=== PATIENT | female | born 1950 | race Caucasian/White ===

== ENCOUNTER 2019-01-05 22:53 | Observation (INO) | payer MEDICARE, OTHER ==
[2019-01-05] MEDS ORDERED: Sodium Chloride 0.9% 1,000 ML IV SCH (23:45)
[2019-01-05] MEDS ORDERED: Nitroglycerin 2% Oint 1 GM UD Packet TOP ONE (23:47)
--- NOTE | 2019-01-05 23:48 | EDM.PDOC ---
ED HPI GENERAL MEDICAL PROBLEM - General Chief Complaint: General Stated Complaint: SHARP PAINS IN FACE AND EYE Time Seen by Provider: 01/05/19 23:15 Source of Information: Reports: Patient, Family History Limitations: Reports: No Limitations - History of Present Illness INITIAL COMMENTS - FREE TEXT/NARRATIVE: 68 y.o.w.f came to ED because of left face and left arm numbness. She has intermittent pain behind her left eye. Here MRI brain was neg for CVA and the result a 48 hours Holter monitor is pending. She has C/P per se. No N/V/D no photophobia. She can not take Aspirin because abnormal labs of her kidney. BP 170/87 RR 16 Pulse ox 98% Temp 36.6 Pulse 48 Onset Date: 01/04/19 Onset Time: 07:00 Duration: Hour(s):, Day(s):, Getting Worse, Intermittent Location: Reports: Face, Upper Extremity, Right (numbness), Lower Extremity, Left Quality: Reports: Other (numbness) Severity: Mild Improves with: Reports: None Worsens with: Reports: None Context: Reports: Other Headache Pain Score (Numeric/FACES): 5 - Related Data Allergies Allergy/AdvReac Type Severity Reaction Status Date / Time ketorolac [From Toradol] Allergy Rash Verified 01/05/19 23:01 Sulfa (Sulfonamide Allergy Hives Verified 01/05/19 23:01 Antibiotics) Home Meds: Home Meds Metoprolol Succinate [Toprol XL] 50 mg PO DAILY 05/14/14 [History] Albuterol [Proair HFA] 2 puff INH DAILY PRN 01/09/16 [History] Gabapentin [Neurontin] 300 mg PO DAILY 01/09/16 [History] Calcium Carbonate [Super Calcium] 600 mg PO DAILY 10/01/16 [History] Cetirizine [ZyrTEC] 20 mg PO DAILY 10/01/16 [History] Cholecalciferol (Vitamin D3) [Vitamin D3] 1,000 unit PO DAILY 10/01/16 [History] Fluticasone Propionate [Flonase] 2 spray BRIANNA DAILY 10/01/16 [History] Omeprazole Magnesium 20 mg PO BID PRN 10/01/16 [History] Triamcinolone Acetonide [Kenalog 0.1% Crm] 1 applic TOP BID PRN 10/01/16 [ History] Aspirin 325 mg PO DAILY PRN 01/05/19 [History] Rosuvastatin [Crestor] 10 mg PO DAILY 01/05/19 [History] Past Medical History HEENT History: Reports: Impaired Vision Other HEENT History: allergic rhinitis Cardiovascular History: Reports: Arrhythmia, Hypertension Other Cardiovascular History: hyperlipidemia, varicose veins both lower extremities Respiratory History: Reports: Asthma Gastrointestinal History: Reports: Cholelithiasis, Diverticulosis, GERD 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: atrophic vaginitis Musculoskeletal History: Reports: Back Pain, Chronic, Fracture, Fibromyalgia, Osteoarthritis, Osteoporosis Neurological History: Other Neuro History: benign essential tremor Psychiatric History: Reports: Anxiety Endocrine/Metabolic History: Reports: Osteoporosis Hematologic History: Reports: None Immunologic History: Reports: None Oncologic (Cancer) History: Reports: None Dermatologic History: Reports: Other (See Below) Other Dermatologic History: BROWN AREA LEFT ANKLE FROM VARICOSE VIENS/ CIRCULATION - Past Surgical History GI Surgical History: Reports: Cholecystectomy, Colonoscopy, EGD, Polypectomy Musculoskeletal Surgical History: Reports: Other (See Below) Other Musculoskeletal Surgeries/Procedures:: Meniscus repair Social & Family History - Family History Family Medical History: Noncontributory - Tobacco Use Smoking Status *Q: Never Smoker - Caffeine Use Caffeine Use: Reports: Coffee, Soda - Recreational Drug Use Recreational Drug Use: No ED ROS GENERAL - Review of Systems Review Of Systems: See Below Constitutional: Reports: No Symptoms HEENT: Reports: No Symptoms Respiratory: Reports: No Symptoms Cardiovascular: Reports: Palpitations, Other (numbness left face and left arm) Endocrine: Reports: No Symptoms GI/Abdominal: Reports: No Symptoms : Reports: No Symptoms Musculoskeletal: Reports: No Symptoms Skin: Reports: No Symptoms Neurological: Reports: Headache (left temp area) Psychiatric: Reports: No Symptoms Hematologic/Lymphatic: Reports: No Symptoms Immunologic: Reports: No Symptoms ED EXAM, GENERAL - Physical Exam Exam: See Below Exam Limited By: No Limitations General Appearance: Alert, WD/WN, Mild Distress Eye Exam: Bilateral Eye: Normal Inspection Ears: Normal External Exam Ear Exam: Bilateral Ear: Auricle Normal Nose: Normal Inspection, Normal Mucosa, No Blood Throat/Mouth: Normal Inspection, Normal Lips, Normal Voice, No Airway Compromise Head: Atraumatic, Normocephalic Neck: Normal Inspection, Supple, Non-Tender, Full Range of Motion Respiratory/Chest: No Respiratory Distress, Lungs Clear, Normal Breath Sounds, Chest Non-Tender Cardiovascular: Normal Peripheral Pulses, Regular Rate, Rhythm, No Edema, No Gallop, No Murmur, No Rub Peripheral Pulses: 1+: Brachial (R) GI/Abdominal: Normal Bowel Sounds, Soft, Non-Tender, No Organomegaly, No Abnormal Bruit, No Mass, Pelvis Stable (Female) Exam: Deferred Rectal (Female) Exam: Deferred Back Exam: Normal Inspection Extremities: Normal Inspection, Normal Range of Motion, Non-Tender Neurological: Alert, Oriented, CN II-XII Intact, Normal Cognition, Normal Gait, Other (nubness ) Psychiatric: Normal Affect, Normal Mood Skin Exam: Warm, Dry, Intact Lymphatic: No Adenopathy EKG INTERPRETATION EKG Date: 01/05/19 Time: 23:55 Rhythm: NSR Rate (Beats/Min): 48 [place]: Normal P-Wave: Present QRS: Normal ST-T: Normal QT: Normal Comparison: NA - No Prior EKG Course - Vital Signs Text/Narrative:: 68 y.o.w.f came to te ED because of left face and left arm numbness. She has intermittent pain behind her left eye. Here MRI brain was neg for CVA and the result a 48 hours Holter monitor is pending. She has C/P per se. No N/V/D no photophobia. She can not take Aspirin because abnormal labs of her kidney. BP 170/87 RR 16 Pulse ox 98% Temp 36.6 Pulse 48 PE: WNWD W F with left face and left arm numbness, worse with neck movement, neg MRI of brain. Neck vessels were not tested. Pt was told not to take ASA Imaging: MRI brain was neg for CVA a few days ago Labs: CBC neg, D Dimer neg, Troponin 0.017, GFR 49 Cr 1.1 BUN 24 48 hours Holter monitor results are pending Impression: Unstable angina with left arm and face numbness vs TIA, Migraine H/ A DDx Temporal arteritis Dizziness with neck movement. DDx poss carotis stenosis Tx: Nitropaste, NS, Lovenox Reexam: Numbness subsided, ASA was not given because her renal insufficiency, H/ A behind left eye improved Plan: admit to [facility], Doppler US of carotids in AM, needs to be scheduled 01/06/19 2nd EKG: No change from prev EKG, HR was 52 however. Last Recorded V/S: Last Vital Signs Temp 36.3 C 01/06/19 01:38 Pulse 63 01/06/19 01:38 Resp 16 01/06/19 01:38 BP 116/73 01/06/19 01:38 Pulse Ox 98 01/06/19 01:38 - Orders/Labs/Meds Orders: Active Orders 24 hr Category Date Time Status Sodium Chloride 0.9% [Normal Saline] 1,000 ml Med 01/05/19 23:45 Active IV ASDIRECTED Sodium Chloride 0.9% [Saline Flush] Med 01/05/19 23:55 Active 10 ml FLUSH ASDIRECTED PRN Medication Orders Enoxaparin Sodium (Lovenox) 80 mg SUBCUT Q24H [facility] Last Admin: 01/06/19 01:29 Dose: 80 mg Sodium Chloride (Normal Saline) 1,000 mls @ 125 mls/hr IV ASDIRECTED [facility] Last Admin: 01/06/19 00:00 Dose: 125 mls/hr Sodium Chloride (Saline Flush) 10 ml FLUSH ASDIRECTED PRN PRN Reason: IV Use Last Admin: 01/05/19 23:58 Dose: 10 ml Labs: Laboratory Tests 01/05/19 01/05/19 01/05/19 Range/Units 23:58 23:58 23:58 WBC 7.0 (4.5-12.0) X10-3/uL RBC 4.75 (3.23-5.20) x10(6)uL Hgb 14.6 (11.5-15.5) g/dL Hct 42.7 (30.0-51.3) % MCV 90.0 (80-96) fL MCH 30.7 (27.7-33.6) pg MCHC 34.1 (32.2-35.4) g/dL RDW 12.4 (11.5-15.5) % Plt Count 177 (125-369) X10(3)uL MPV 10.1 (7.4-10.4) fL Neut % (Auto) 68.5 (46-82) % Lymph % (Auto) 21.8 (13-37) % [place] % (Auto) 7.9 (4-12) % Eos % (Auto) 2 (1.0-5.0) % Baso % (Auto) 0 (0-2) % Neut # (Auto) 4.8 (1.6-8.3) # Lymph # (Auto) 1.5 (0.6-5.0) # [place] # (Auto) 0.6 (0.0-1.3) # Eos # (Auto) 0.1 (0.0-0.8) # Baso # (Auto) 0.0 (0.0-0.2) # D-Dimer, Quantitative 0.44 (0.0-0.59) mg/LFEU Sodium 142 (135-145) mmol/L Potassium 4.0 (3.5-5.3) mmol/L Chloride 107 (100-110) mmol/L Carbon Dioxide 23 (21-32) mmol/L BUN 21 H (7-18) mg/dL Creatinine 1.1 H (0.55-1.02) mg/dL Est Cr Clr Drug Dosing 41.09 mL/min Estimated GFR (MDRD) 49 L (>60) BUN/Creatinine Ratio 19.1 (9-20) Glucose 113 (80-116) mg/dL Calcium 9.6 (8.6-10.2) mg/dL Troponin I (<0.017-0.056) ng/mL 01/05/19 Range/Units 23:58 WBC (4.5-12.0) X10-3/uL RBC (3.23-5.20) x10(6)uL Hgb (11.5-15.5) g/dL Hct (30.0-51.3) % MCV (80-96) fL MCH (27.7-33.6) pg MCHC (32.2-35.4) g/dL RDW (11.5-15.5) % Plt Count (125-369) X10(3)uL MPV (7.4-10.4) fL Neut % (Auto) (46-82) % Lymph % (Auto) (13-37) % [place] % (Auto) (4-12) % Eos % (Auto) (1.0-5.0) % Baso % (Auto) (0-2) % Neut # (Auto) (1.6-8.3) # Lymph # (Auto) (0.6-5.0) # [place] # (Auto) (0.0-1.3) # Eos # (Auto) (0.0-0.8) # Baso # (Auto) (0.0-0.2) # D-Dimer, Quantitative (0.0-0.59) mg/LFEU Sodium (135-145) mmol/L Potassium (3.5-5.3) mmol/L Chloride (100-110) mmol/L Carbon Dioxide (21-32) mmol/L BUN (7-18) mg/dL Creatinine (0.55-1.02) mg/dL Est Cr Clr Drug Dosing mL/min Estimated GFR (MDRD) (>60) BUN/Creatinine Ratio (9-20) Glucose (80-116) mg/dL Calcium (8.6-10.2) mg/dL Troponin I < 0.017 L (<0.017-0.056) ng/mL Meds: Medications Generic Name Dose Route Start Last Admin Trade Name Freq PRN Reason Stop Dose Admin Enoxaparin Sodium 80 mg 01/06/19 01:15 01/06/19 01:29 Lovenox SUBCUT 80 mg Q24H [facility] Administration Sodium Chloride 1,000 mls @ 125 mls/hr 01/05/19 23:45 01/06/19 00:00 Normal Saline IV 125 mls/hr ASDIRECTED [facility] Administration Sodium Chloride 10 ml 01/05/19 23:55 01/05/19 23:58 Saline Flush FLUSH 10 ml ASDIRECTED PRN Administration IV Use Discontinued Medications Generic Name Dose Route Start Last Admin Trade Name Freq PRN Reason Stop Dose Admin Acetaminophen 650 mg 01/06/19 02:24 01/06/19 02:34 Tylenol PO 01/06/19 02:25 650 mg ONETIME ONE Administration Nitroglycerin 1 gm 01/05/19 23:47 01/05/19 23:53 Nitro-Bid 2% TOP 01/05/19 23:48 1 gm ONETIME ONE Administration Departure - Departure Time of Disposition: 01:42 Disposition: Refer to Observation Condition: Fair Clinical Impression: Unstable angina - Discharge Information - My Orders Last 24 Hours: My Active Orders 01/05/19 23:45 Sodium Chloride 0.9% [Normal Saline] 1,000 ml IV ASDIRECTED 01/05/19 23:55 Sodium Chloride 0.9% [Saline Flush] 10 ml FLUSH ASDIRECTED PRN - Assessment/Plan Last 24 Hours: My Active Orders 01/05/19 23:45 Sodium Chloride 0.9% [Normal Saline] 1,000 ml IV ASDIRECTED 01/05/19 23:55 Sodium Chloride 0.9% [Saline Flush] 10 ml FLUSH ASDIRECTED PRN
[2019-01-05] MEDS: Sodium Chloride 0.9% 10 ML Syringe FLUSH PRN (23:58)
[2019-01-06] MEDS ORDERED: Enoxaparin 40 MG/0.4 ML Syringe SUBCUT SCH (01:15)
[2019-01-06] MEDS ORDERED: Acetaminophen Soln 650 MG/20.3 ML UD Cup PO ONE (02:24)
[2019-01-06] MEDS: Sodium Chloride 0.9% 10 ML Syringe FLUSH PRN (08:11)
--- NOTE | 2019-01-06 08:34 | PCM.HP ---
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 She describes episodes of dull pain face ,usually left sided,that also causes a dull headache ,primarily occur at night. These have been on for at least 3 weeks. Sometimes demonstrated visual disturbance, tearing and extreme fatigue afterwards. Yesterday it became unrelenting and she presented to the ER. In the clinic she said an MRI that apparently showed could sit medications and she is current on Lipitor. She also takes metoprolol for an "irregular heartbeat". She denies any chest pain shortness of breath but has had some nausea protocol with these headaches. Denies recent stress; fever chills and doesn't smoke or drink. Headache Pain Score (Numeric/FACES): 5 - Related Data Allergies/Adverse Reactions: Allergies Allergy/AdvReac Type Severity Reaction Status Date / Time ketorolac [From Toradol] Allergy Rash Verified 01/05/19 23:01 Sulfa (Sulfonamide Allergy Hives Verified 01/05/19 23:01 Antibiotics) Home Medications: Home Meds Metoprolol Succinate [Toprol XL] 50 mg PO DAILY 05/14/14 [History] Albuterol [Proair HFA] 2 puff INH DAILY PRN 01/09/16 [History] Gabapentin [Neurontin] 300 mg PO DAILY 01/09/16 [History] Calcium Carbonate [Super Calcium] 600 mg PO DAILY 10/01/16 [History] Cetirizine [ZyrTEC] 20 mg PO DAILY 10/01/16 [History] Cholecalciferol (Vitamin D3) [Vitamin D3] 1,000 unit PO DAILY 10/01/16 [History] Fluticasone Propionate [Flonase] 2 spray BRIANNA DAILY 10/01/16 [History] Omeprazole Magnesium 20 mg PO BID PRN 10/01/16 [History] Triamcinolone Acetonide [Kenalog 0.1% Crm] 1 applic TOP BID PRN 10/01/16 [ History] Aspirin 325 mg PO DAILY PRN 01/05/19 [History] Rosuvastatin [Crestor] 10 mg PO DAILY 01/05/19 [History] Past Medical History HEENT History: Reports: Impaired Vision Other HEENT History: allergic rhinitis Cardiovascular History: Reports: Arrhythmia, Hypertension Other Cardiovascular History: hyperlipidemia, varicose veins both lower extremities Respiratory History: Reports: Asthma Gastrointestinal History: Reports: Cholelithiasis, Diverticulosis, GERD 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 Other OB/BYN History: atrophic vaginitis Musculoskeletal History: Reports: Back Pain, Chronic, Fracture, Fibromyalgia, Osteoarthritis, Osteoporosis Neurological History: Other Neuro History: benign essential tremor Psychiatric History: Reports: Anxiety Endocrine/Metabolic History: Reports: Osteoporosis Hematologic History: Reports: None Immunologic History: Reports: None Oncologic (Cancer) History: Reports: None Dermatologic History: Reports: Other (See Below) Other Dermatologic History: BROWN AREA LEFT ANKLE FROM VARICOSE VIENS/ CIRCULATION - Infectious Disease History Infectious Disease History: Reports: Chicken Pox, Measles - Past Surgical History GI Surgical History: Reports: Cholecystectomy, Colonoscopy, EGD, Polypectomy Musculoskeletal Surgical History: Reports: Other (See Below) Other Musculoskeletal Surgeries/Procedures:: Meniscus repair Social & Family History - Family History Family Medical History: Noncontributory - Tobacco Use Smoking Status *Q: Never Smoker Second Hand Smoke Exposure: No - Caffeine Use Caffeine Use: Reports: Coffee, Soda - Recreational Drug Use Recreational Drug Use: No H&P Review of Systems - Review of Systems: Review Of Systems: ROS reveals no pertinent complaints other than HPI. Exam - Exam Exam: See Below - Vital Signs Vital Signs: Last Vital Signs Temp 97.3 F 01/06/19 01:38 Pulse 63 01/06/19 01:38 Resp 16 01/06/19 01:38 BP 116/73 01/06/19 01:38 Pulse Ox 98 01/06/19 01:38 Weight: 77.836 kg - Exam General: Alert, Oriented, 4 HEENT: PERRLA, Hearing Intact, Mucosa Moist & [place], Nares Patent, Normal Nasal Septum, Posterior Pharynx Clear, Conjunctiva Clear, EOMI, EACs Clear, TMs Clear Neck: Supple, Trachea Midline, 2 Lungs: Clear to Auscultation, Normal Respiratory Effort Cardiovascular: Regular Rate, Irregular Rhythm, Systolic Murmur GI/Abdominal Exam: Normal Bowel Sounds, Soft, Non-Tender, No Organomegaly, No Distention, No Abnormal Bruit, No Mass, Pelvis Stable (Female) Exam: Normal Speculum Exam, Deferred Rectal (Female) Exam: Deferred Back Exam: Normal Inspection, Full Range of Motion, NT Extremities: Normal Inspection, Normal Range of Motion, Non-Tender, No Pedal Edema, Normal Capillary Refill Skin: Warm, Dry, Intact Neurological: Cranial Nerves Intact, Reflexes Equal Bilateral Neuro Extensive - Mental Status: Alert, Oriented x3, Normal Mood/Affect, Normal Cognition Neuro Extensive - Motor, Sensory, Reflexes: CN II-XII Intact, Normal Gait, Normal Reflexes Psychiatric: Alert, Normal Affect, Normal Mood - Patient Data Lab Results Last 24 hrs: Laboratory Results - last 24 hr 01/05/19 01/05/19 01/05/19 Range/Units 23:58 23:58 23:58 WBC 7.0 (4.5-12.0) X10-3/uL RBC 4.75 (3.23-5.20) x10(6)uL Hgb 14.6 (11.5-15.5) g/dL Hct 42.7 (30.0-51.3) % MCV 90.0 (80-96) fL MCH 30.7 (27.7-33.6) pg MCHC 34.1 (32.2-35.4) g/dL RDW 12.4 (11.5-15.5) % Plt Count 177 (125-369) X10(3)uL MPV 10.1 (7.4-10.4) fL Neut % (Auto) 68.5 (46-82) % Lymph % (Auto) 21.8 (13-37) % Ray % (Auto) 7.9 (4-12) % Eos % (Auto) 2 (1.0-5.0) % Baso % (Auto) 0 (0-2) % Neut # (Auto) 4.8 (1.6-8.3) # Lymph # (Auto) 1.5 (0.6-5.0) # Ray # (Auto) 0.6 (0.0-1.3) # Eos # (Auto) 0.1 (0.0-0.8) # Baso # (Auto) 0.0 (0.0-0.2) # ESR (0-20) mm/hr D-Dimer, Quantitative 0.44 (0.0-0.59) mg/LFEU Sodium 142 (135-145) mmol/L Potassium 4.0 (3.5-5.3) mmol/L Chloride 107 (100-110) mmol/L Carbon Dioxide 23 (21-32) mmol/L BUN 21 H (7-18) mg/dL Creatinine 1.1 H (0.55-1.02) mg/dL Est Cr Clr Drug Dosing 41.09 mL/min Estimated GFR (MDRD) 49 L (>60) BUN/Creatinine Ratio 19.1 (9-20) Glucose 113 (80-116) mg/dL Calcium 9.6 (8.6-10.2) mg/dL Troponin I (<0.017-0.056) ng/mL 01/05/19 01/06/19 01/06/19 Range/Units 23:58 00:00 04:15 WBC (4.5-12.0) X10-3/uL RBC (3.23-5.20) x10(6)uL Hgb (11.5-15.5) g/dL Hct (30.0-51.3) % MCV (80-96) fL MCH (27.7-33.6) pg MCHC (32.2-35.4) g/dL RDW (11.5-15.5) % Plt Count (125-369) X10(3)uL MPV (7.4-10.4) fL Neut % (Auto) (46-82) % Lymph % (Auto) (13-37) % [place] % (Auto) (4-12) % Eos % (Auto) (1.0-5.0) % Baso % (Auto) (0-2) % Neut # (Auto) (1.6-8.3) # Lymph # (Auto) (0.6-5.0) # Ray # (Auto) (0.0-1.3) # Eos # (Auto) (0.0-0.8) # Baso # (Auto) (0.0-0.2) # ESR 2 (0-20) mm/hr D-Dimer, Quantitative (0.0-0.59) mg/LFEU Sodium (135-145) mmol/L Potassium (3.5-5.3) mmol/L Chloride (100-110) mmol/L Carbon Dioxide (21-32) mmol/L BUN (7-18) mg/dL Creatinine (0.55-1.02) mg/dL Est Cr Clr Drug Dosing mL/min Estimated GFR (MDRD) (>60) BUN/Creatinine Ratio (9-20) Glucose (80-116) mg/dL Calcium (8.6-10.2) mg/dL Troponin I < 0.017 L < 0.017 L (<0.017-0.056) ng/mL Result Diagrams: 01/05/19 23:58 01/05/19 23:58 - Problem List (1) Facial pain SNOMED Code(s): 32646344 ICD Code: R51 - HEADACHE Status: Acute Current Visit: Yes (2) Afib SNOMED Code(s): 23800423 ICD Code: I48.91 - UNSPECIFIED ATRIAL FIBRILLATION Status: Acute Current Visit: Yes (3) Numbness of face SNOMED Code(s): 630561693 ICD Code: R20.0 - ANESTHESIA OF SKIN Status: Acute Current Visit: Yes Problem List Initiated/Reviewed/Updated: Yes Orders Last 24hrs: Active Orders 24 hr Category Date Time Status Patient Status [ADT] Routine ADT 01/06/19 01:13 Active Cardiac Monitoring [RC] CONTINUOUS Care 01/06/19 01:16 Active EKG Documentation Completion [RC] ASDIRECTED Care 01/06/19 02:14 Active Oxygen Therapy [RC] PRN Care 01/06/19 01:13 Active Pulse Oximetry [RC] CONTINUOUS Care 01/06/19 01:16 Active Up With Assistance [RC] ASDIRECTED Care 01/06/19 01:13 Active Vital Signs [RC] Q4H Care 01/06/19 01:13 Active Heart Healthy Diet [DIET] Diet 01/06/19 Breakfast Ordered CBC WITH AUTO DIFF [HEME] Routine Lab 01/06/19 08:26 Ordered GLYCOSYLATED HEMOGLOBIN,HGBA1C [CHEM] Routine Lab 01/06/19 08:26 Ordered LIPID PANEL [CHEM] Routine Lab 01/06/19 08:26 Ordered TSH ULTRASENSITIVE [CHEM] Routine Lab 01/06/19 08:26 Ordered Enoxaparin [Lovenox] Med 01/06/19 01:15 Active 80 mg SUBCUT Q24H Sodium Chloride 0.9% [Saline Flush] Med 01/05/19 23:55 Active 10 ml FLUSH ASDIRECTED PRN Resuscitation Status Routine Resus Stat 01/06/19 01:13 Ordered EKG 12 Lead [EK] Routine Ther 01/06/19 02:12 Ordered EKG 12 Lead [EK] Routine Ther 01/06/19 04:00 Ordered Medication Orders Enoxaparin Sodium (Lovenox) 80 mg SUBCUT Q24H [facility] Last Admin: 01/06/19 01:29 Dose: 80 mg Sodium Chloride (Saline Flush) 10 ml FLUSH ASDIRECTED PRN PRN Reason: IV Use Last Admin: 01/06/19 08:11 Dose: 10 ml Admin: 01/05/19 23:58 Dose: 10 ml Assessment/Plan Comment:: The episodes sound more like cluster or migraine headache variant, however I will be able to rule out trigeminal neurology, giant cell arteritis or TIA. Apparently the MRI of the brain was normal. This morning along with order lab work including a TSH lipid profile A1c. Also going to obtain an MRA of the carotids, and have asked her to obtain an echocardiogram as an outpatient. She will see Ani Toth to discuss further wisdom and possibly referrals to neurology and cardiology. She is at intermediate risk for stroke, and might benefit from anticoagulation will like to discuss this with PCP. In the meantime have advised her to take a baby aspirin once a day
[2019-01-06] MEDS ORDERED: Gadoteridol 279.3 MG/ML 20 ML SDV IV SCH (10:15)
[2019-01-06 10:21] LABS: HEMOGLOBIN A1C 5.9 % (4.5-6.2)
[2019-01-06 10:34] VITALS: BP 106/62
[2019-01-06] MEDS ORDERED: SUMAtriptan 6 MG/0.5 ML SDV SUBCUT ONE (11:24)
== END 2019-01-06 12:30 | disposition home or self-care (01) ==
LOC: FB.ED 22:53 → FB.MS 01-06 01:13
PROVIDERS: ADMIT Family Medicine; ATTEND Family Medicine
DX: R51 Headache (principal); R20.0 Anesthesia of skin; I48.91 Unspecified atrial fibrillation; I10 Essential (primary) hypertension; E78.5 Hyperlipidemia, unspecified; I49.9 Cardiac arrhythmia, unspecified; J45.909 Unspecified asthma, uncomplicated; K57.30 Diverticulosis of large intestine without perforation or abscess without bleeding; K21.9 Gastro-esophageal reflux disease without esophagitis; Z88.2 Allergy status to sulfonamides; Z88.6 Allergy status to analgesic agent; Z79.899 Other long term (current) drug therapy; Z79.51 Long term (current) use of inhaled steroids; Z79.82 Long term (current) use of aspirin
CPT/HCPCS: 36415; 70548; 80048; 80061; 83036; 84443; 84484; 85025; 85379; 85651; 86140; 93005; 96360; 96361; 96372; 99284-25; A9270-GY; A9579; G0378; J1650; J3030; J7030